=== PATIENT | female | born 1940 | race Caucasian/White ===

== ENCOUNTER 2023-01-14 06:49 | Emergency (ER) | payer OTHER ==
[~2023-01-14] VITALS: Ht 162.6 cm; Wt 65.8 kg
[~2023-01-14 06:49] MED LIST: METF-440
[2023-01-14 08:24] LABS: BASOPHILS # (AUTO) 0.1 K/uL (0.0-0.2); BASOPHILS % (AUTO) 0.9 % (0.0-2.0); EOSINOPHILS # (AUTO) 0.1 K/uL (0.0-0.7); EOSINOPHILS % (AUTO) 1.2 % (0.0-6.0); HEMATOCRIT 37 % (33-45); LYMPHOCYTES # (AUTO) 1.7 K/uL (0.8-4.8); MEAN CORPUSCULAR HEMOGLOBIN 28 PG (26.0-33.0); MEAN CORPUSCULAR HGB CONC 32 g/dl (31.0-36.0); MEAN CORPUSCULAR VOLUME 89 fL (82-100); MONOCYTES # (AUTO) 0.6 K/uL (0.1-1.30); MONOCYTES % (AUTO) 5.9 % (2.0-12.0); NEUTROPHILS # (AUTO) 7.7 K/uL (1.8-8.9); PLATELET COUNT (AUTO) 548 K/uL (150-450); RED BLOOD CELL COUNT(AUTO) 4.22 MIL/uL (4.0-5.2); RED CELL DISTRIBUTION WIDTH 16.1 % (11.5-15.0); WHITE BLOOD COUNT (AUTO) 10.2 K/uL (4.3-11.0)
[2023-01-14 08:35] LABS: CALCIUM, SERUM 9.4 mg/dL (8.5-10.1); CARBON DIOXIDE 23 mmol/L (21-32); CHLORIDE 106 mmol/L (98-107); CREATININE 0.9 mg/dL (0.6-1.3); GLUCOSE 76 mg/dL (74-106); POTASSIUM 4.3 mmol/L (3.5-5.1); SODIUM SERUM 137 mmol/L (136-145); UREA NITROGEN, BLOOD 32 mg/dL (7-18)
[2023-01-14 08:40] LABS: ALANINE AMINOTRANSFERASE 17 U/L (12-78); ALBUMIN 2.5 g/dL (3.4-5.0); ALKALINE PHOSPHATASE 87 U/L (46-116); ASPARTATE AMINOTRANSFERASE 23 U/L (15-37); BILIRUBIN,DIRECT 0.2 mg/dL (0.0-0.2); BILIRUBIN,TOTAL 0.6 mg/dL (0.2-1.0); SALICYLATE < 2.3 mg/dL (2.8-20.0); TOTAL PROTEIN, SERUM 7.3 g/dL (6.4-8.2)
[2023-01-14 08:41] LABS: ACETAMINOPHEN 0 ug/ml (10-30); ALCOHOL, BLOOD < 3 mg/dL (0-10)
[2023-01-14] MEDS ORDERED: DEXTROSE 50%-WATER 50 ML DISP.SYRIN ONE (09:52)
[2023-01-14] MEDS ORDERED: DEXTROSE 50%-WATER 50 ML DISP.SYRIN IVP ONE (10:30)
[2023-01-14 10:59] LABS: APPEARANCE,URINE CLEAR (CLEAR); BILIRUBIN,URINE NEGATIVE (NEGATIVE); BLOOD, URINE NEGATIVE Ery/uL (NEGATIVE); COLOR,URINE YELLOW (YELLOW); KETONES,URINE NEGATIVE (NEGATIVE); LEUKOCYTE ESTERASE ,URINE NEGATIVE (NEGATIVE); NITRITE, URINE NEGATIVE (NEGATIVE); PROTEIN,URINE 2+ mg/dl (NEGATIVE); UGLUCOSE NEGATIVE (NEGATIVE); UROBILINOGEN,URINE 0.2 EU/dL (0.2)
[2023-01-14] MEDS ORDERED: CYAN-51 PO (11:09)
[2023-01-14] MEDS ORDERED: METO25TA20 PO (11:09)
[2023-01-14] MEDS ORDERED: FERR325T23 PO (11:09)
[2023-01-14] MEDS ORDERED: MAGN400T26 PO (11:09)
[2023-01-14] MEDS ORDERED: METF-442 PO (11:09)
[2023-01-14] MEDS ORDERED: THIA100T68 PO (11:09)
[2023-01-14] MEDS ORDERED: ACET-868 PO (11:09)
[2023-01-14] MEDS ORDERED: HYDR-4076 PO (11:09)
[2023-01-14] MEDS ORDERED: QUET25TA PO (11:09)
[2023-01-14] MEDS ORDERED: FOLI0.4T6 PO (11:09)
[2023-01-14] MEDS ORDERED: TRAM50TA2 PO (11:09)
[2023-01-14] MEDS ORDERED: FAMO20TA8 PO (11:09)
[2023-01-14] MEDS ORDERED: PYRI100T10 PO (11:09)
[2023-01-14] MEDS ORDERED: ASPI-1420 PO (11:09)
[2023-01-14] MEDS ORDERED: ATOR10TA PO (11:09)
[2023-01-14] MEDS ORDERED: NPH,100I SQ (11:09)
[2023-01-14] MEDS ORDERED: CHOL100043 PO (11:09)
[2023-01-14] MEDS ORDERED: LOSA25TA27 PO (11:09)
[2023-01-14 11:17] LABS: AMPHETAMINE, URINE NEGATIVE (NEGATIVE); BARBITURATE, URINE NEGATIVE (NEGATIVE); BENZODIAZEPINE, URINE NEGATIVE (NEGATIVE); CANNABINOID, URINE NEGATIVE (NEGATIVE); COCCAINE, URINE NEGATIVE (NEGATIVE); OPIATE, URINE NEGATIVE (NEGATIVE); PHENCYCLIDINE SCREEN,URINE NEGATIVE (NEGATIVE)
[2023-01-14] MEDS ORDERED: IV D5W 1,000 ML IV ONE (11:30)
[2023-01-14 15:17] VITALS: BP 163/106; TEMP 98; O2SAT 99
== END 2023-01-14 15:18 | disposition short-term general hospital (02) ==
LOC: ER 06:54
DX: E11.649 Type 2 diabetes mellitus with hypoglycemia without coma (principal); R41.82 Altered mental status, unspecified; F03.90 Unspecified dementia, unspecified severity, without behavioral disturbance, psychotic disturbance, mood disturbance, and anxiety; I10 Essential (primary) hypertension; Z88.0 Allergy status to penicillin; Z88.2 Allergy status to sulfonamides; Z88.8 Allergy status to other drugs, medicaments and biological substances; Z79.84 Long term (current) use of oral hypoglycemic drugs; Z79.899 Other long term (current) drug therapy; Z20.822 Contact with and (suspected) exposure to COVID-19
CPT/HCPCS: 36415; 80048-TC; 80076-TC; 82962-TC; 84484-TC; 85025-TC; 87086-TC; A4223; C9803; G0480; J7070